=== PATIENT | male | born 1940 | race Caucasian/White ===

== ENCOUNTER → 2016-11-29 | Outpatient (CLI) | payer MEDICARE, BC ==
[2016-11-29 11:01] LABS: Basophils # (A) 0.1 k/uL (0-0.2); Basophils % (A) 1 %; CH 30.9; CHCM 34.4; Eosinophils # (A) 0.5 k/uL (0-0.7); Eosinophils % (A) 4 %; HCT 38.3 % (39.0-53.0); HDW 2.62; HGB 12.9 gm/dL (13.0-17.5); Luc # (Auto) 0.35; Luc % (Auto) 3; Lymphocytes # (A) 2.5 k/uL (1.0-4.8); Lymphocytes % (A) 20 %; MCH 30.4 pg (25.0-35.0); MCHC 33.7 g/dL (31.0-37.0); MCV 90.3 fL (80.0-100.0); Mean Platelet Volume 7.8; Monocytes # (A) 0.7 k/uL (0-1.0); Monocytes % (A) 5 %; Neutrophils # (A) 8.4 k/uL (1.3-7.7); Neutrophils % (A) 68 %; RBC 4.24 m/uL (4.30-5.90); RDW 12.5 % (11.5-15.5); WBC 12.5 k/uL (3.8-10.6); WBC (Perox) 12.78
[2016-11-29 11:54] LABS: Potassium 5.1 mmol/L (3.5-5.1); Total Protein 7.9 g/dL (6.3-8.2)
== END | disposition home or self-care (01) ==
LOC: LABWHC1 10:25
PROVIDERS: ATTEND Internal Medicine Clinical Cardiac Electrophysiology
DX: R55 Syncope and collapse (principal); I47.1 Supraventricular tachycardia
CPT/HCPCS: 36415; 80053; 84443; 85025

== ENCOUNTER 2016-12-04 14:36 | Day surgery (SDC) | payer MEDICARE, BC ==
[2016-11-29 15:21] VITALS: BMI 23.4
[~2016-12-04 14:36] MED LIST: SODIUM CHLORIDE 0.9% 1,000 ML IV SCH; ceFAZolin 1,000 MG in SODIUM CHLORIDE 0.9% IRRIGATIO 250 ML IRRIGATION ONE; ceFAZolin 2 GM in SODIUM CHLORIDE 0.9% 100 ML IVPB ONE
[2016-12-04 16:15] LABS: Glucose,Whole Blood 100 mg/dL (75-99)
[2016-12-04] MEDS ORDERED: IV FLUID CONTINUATION 1,000 ML IV ONE (17:53)
[2016-12-04] MEDS ORDERED: PROPOFOL 10 MG/ML 20 ML VIAL IV ONE (17:53)
[2016-12-04] MEDS ORDERED: fentaNYL (PF) 50 MCG/ML 2 ML AMP ONE (17:53)
[2016-12-04] MEDS ORDERED: MIDAZOLAM 2 MG/2 ML VIAL ONE (17:53)
[2016-12-04] MEDS ORDERED: ePHEDrine 50 MG/ML 1 ML AMP ONE (17:53)
[2016-12-04] MEDS ORDERED: SODIUM CHLORIDE 0.9% 500 ML IV ONE (18:02)
[2016-12-04] MEDS ORDERED: IODIXANOL 270 MG/ML 50 ML ML IV ONE (18:11)
[2016-12-04] MEDS ORDERED: LIDOCAINE 1% INJ 10MG/ML (10 ML MDV) SQ ONE (18:35)
[2016-12-04] MEDS ORDERED: LACTATED RINGERS 1,000 ML IV SCH (19:44)
--- NOTE | 2016-12-04 20:18 | P.PN ---
Progress Note - Text During ICD implantation during catheter placement, patient was experiencing PVCs with a right bundle branch block morphology, upright QRS is in the inferior leads and negatively oriented notched QRS is in lead 1. With lead manipulation he went into sustained ventricular tachycardia at 145 250 beats a minute. PVC morphology was identical to this VT morphology He has had very long runs of nonsustained ventricular tachycardia on Holter monitor in the past Suggest Coreg 6.25 mg twice daily Losartan 12.5 mg by mouth daily If BP is low, backoff on hydrochlorothiazide and amlodipine instead
--- NOTE | 2016-12-04 20:42 | PCN ---
DATE OF PROCEDURE: Wseley Ayala is a 76-year-old male patient who has severe ischemic cardiomyopathy of a chronic nature for at least one year with a severely reduced LV systolic dysfunction at 35%. He has adult-onset diabetes, diet-controlled, chronic kidney disease, stage III, very long runs of non-sustained ventricular tachycardia, frequent ventricular ectopy of ventricular bigeminy, and class II CHF along with sinus bradycardia. He was brought in for dual-chamber ICD implantation for primary prevention of sudden cardiac and management of sick sinus syndrome ( ) so far beta blockers had to be held because he was quite bradycardic. Patient was brought to the EP lab in a fasting state. Written informed consent was obtained prior to the procedure. The left shoulder area was prepped and draped as per protocol and 1% lidocaine was used for local anesthesia. A 4 cm incision was made parallel to the deltopectoral groove about 1.5 cm medial to it. The incision was carried down to the level of the pectoralis muscle. A subfascial pocket was made. Hemostasis was assured. The left axillary vein was accessed at 2 separate points under fluoroscopy and via appropriate-sized introducer sheaths, 2 leads were positioned in the right heart. The atrial lead was a 52 cm model #2088 TC, serial #[id number]. The lead was screwed into the right atrial appendage. The P waves were 2 mV, pacing impedance 530 ohms, pacing threshold 0.75 v at 0.5 ms. Ten-volt test was negative. The ICD lead was a single-coil DF4 lead, [employer], model #7122Q-58 cm and serial #[id number]. This was positioned in the RV apex. The R waves were 10 mV, pacing impedance of 560 ohms, pacing threshold 0.5 v at 0.5 ms. Ten-volt test was negative. Both leads were secured to the underlying pectoralis fascia using 2 non-absorbable sutures. Pocket was irrigated with antibiotic solution. Leads were connected to the generator ([employer] [id number], serial #[id number]). The leads and the generator were then placed in the subfascial pocket. The wound was closed in 3 layers and dressed per protocol. The device was secured to the underlying pectoralis muscle. RESULT: Successful dual-chamber ICD implantation for management of sinus bradycardia and primary prevention of sudden cardiac . Patient tolerated the procedure well without any acute complications. PLAN: Resume beta blockers.
--- NOTE | 2016-12-04 20:44 | LTR ---
December 04, 2016 RE: Wesley Ayala Dear Mirza, I had the pleasure of seeing Wesley Ayala in electrophysiology consultation once again. Wesley underwent dual-chamber ICD implantation successfully without any acute complications. He will stay overnight on telemetry for IV antibiotics, and if his device is functioning normally tomorrow, he will be discharged home. I will now start beta blockers on him. Thank you for entrusting me with the care of your patient. Warm regards. Sincerely, ARMAND DONIS MD
[2016-12-04] MEDS: LOSARTAN 25 MG TAB PO SCH (21:33)
[2016-12-04] MEDS: CARVEDILOL 6.25 MG TAB PO SCH (21:33)
[2016-12-04 22:43] VITALS: RESP 18
[2016-12-05] MEDS: ceFAZolin 2 GM in SODIUM CHLORIDE 0.9% 100 ML IVPB SCH ×4 (00:03→16:19)
[2016-12-05 06:58] LABS: Glucose,Whole Blood 146 mg/dL (75-99)
--- NOTE | 2016-12-05 07:19 | XR ---
EXAMINATION TYPE: XR chest 2V DATE OF EXAM: 12/05/2016 HISTORY: lead placement. REFERENCE: NONE. FINDINGS: There is a bipolar pacemaker in place. Approximately overlies the right atrium and distally overlies the right ventricle. Lung volumes are prominent. The lungs appear clear. Pleural spaces are clear. Heart size upper limits of normal. IMPRESSION: 1. SATISFACTORY PACEMAKER PLACEMENT. 2. COPD. 3. BORDERLINE CARDIOMEGALY.
[2016-12-05 07:22] LABS: Potassium 4.7 mmol/L (3.5-5.1)
--- NOTE | 2016-12-05 08:10 | P.DS ---
Providers Attending physician: Vito Sommer Primary care physician: Mirza [facility] Course: Discharge summary 76-year-old male patient with severe ischemic cardiomyopathy, chronic systolic dysfunction for at least rate is in one year CHF class II Sick sinus syndrome and sinus bradycardia Frequent PVCs, nonsustained ventricular tachycardia as well as sustained VT of her morphology identical to his PVCs in the EP lab with spontaneous conversion Chronic kidney disease stage III Known coronary artery disease old CT status post coronary stenting of the RCA almost 1 year back Dual-chamber ICD implanted yesterday Switch to Coreg and losartan yesterday Stop hydrochlorothiazide Amlodipine to continue Doing well this morning. Blood pressure in the normal range. Breath sounds normal, heart sounds normal Vitals stable ICD site is healed well no hematoma Chest x-ray within normal limits, leads stable Labs this morning as follows: Sodium 144, potassium 4.7, bicarb 20, BUN 31, creatinine 2.29, calcium 9.0 Plan Discharge home today after antibiotics and ICD interrogation Start Coreg 6.125 mg twice daily and losartan 12.5 mg by mouth daily in the morning Stop hydrochlorothiazide Continue amlodipine 10 mg daily in the evening BMP in 2 weeks on low-dose losartan Follow-up with Dr. Mirza rBuce in 3 weeks Device clinic follow-up in 5 days Follow-up with Dr. Sommer in 2-3 months Patient Condition at Discharge: Stable Plan - Discharge Summary New Discharge Prescriptions: No Action Atorvastatin Calcium [Lipitor] 80 mg PO HS Allopurinol [Zyloprim] 100 mg PO Q48H amLODIPine [Norvasc] 10 mg PO HS Clopidogrel Bisulfate [Plavix] 75 mg PO DAILY Cholecalciferol [Vitamin D3] 2,000 unit PO DAILY Aspirin [Adult Low Dose Aspirin EC] 81 mg PO QAM Discharge Medication List Allopurinol [Zyloprim] 100 mg PO Q48H 11/29/16 [History] Aspirin [Adult Low Dose Aspirin EC] 81 mg PO QAM 11/29/16 [History] Atorvastatin Calcium [Lipitor] 80 mg PO HS 11/29/16 [History] Cholecalciferol [Vitamin D3] 2,000 unit PO DAILY 11/29/16 [History] Clopidogrel Bisulfate [Plavix] 75 mg PO DAILY 11/29/16 [History] amLODIPine [Norvasc] 10 mg PO HS 11/29/16 [History]
[2016-12-05] MEDS: CARVEDILOL 6.25 MG TAB PO SCH ×2 (08:23→17:33)
[2016-12-05] MEDS: LOSARTAN 25 MG TAB PO SCH (08:23)
[2016-12-05 12:11] LABS: Glucose,Whole Blood 132 mg/dL (75-99)
[2016-12-05 17:05] VITALS: BP 157/67; PULSE 58; TEMP 98.4
[2016-12-05 17:20] LABS: Glucose,Whole Blood 108 mg/dL (75-99)
[2016-12-05] MEDS ORDERED: ceFAZolin 2 GM in SODIUM CHLORIDE 0.9% 100 ML IVPB SCH (22:00)
== END 2016-12-05 18:00 | disposition home or self-care (01) ==
LOC: CATHEP 14:36 → 3OBS 19:16 → CATHEP 12-05 18:00
PROVIDERS: ATTEND Internal Medicine Clinical Cardiac Electrophysiology
DX: I25.5 Ischemic cardiomyopathy (principal); I47.2 Ventricular tachycardia; I25.10 Atherosclerotic heart disease of native coronary artery without angina pectoris; Z95.5 Presence of coronary angioplasty implant and graft; I49.5 Sick sinus syndrome; I13.0 Hypertensive heart and chronic kidney disease with heart failure and stage 1 through stage 4 chronic kidney disease, or unspecified chronic kidney disease; E11.22 Type 2 diabetes mellitus with diabetic chronic kidney disease; N18.3 Chronic kidney disease, stage 3 (moderate); I50.22 Chronic systolic (congestive) heart failure; I49.3 Ventricular premature depolarization; I25.2 Old myocardial infarction; I77.819 Aortic ectasia, unspecified site; I70.0 Atherosclerosis of aorta; R00.1 Bradycardia, unspecified; Z00.6 Encounter for examination for normal comparison and control in clinical research program; J44.9 Chronic obstructive pulmonary disease, unspecified; M10.9 Gout, unspecified; Z79.02 Long term (current) use of antithrombotics/antiplatelets; Z79.82 Long term (current) use of aspirin; Z79.899 Other long term (current) drug therapy; Z87.891 Personal history of nicotine dependence
CPT/HCPCS: 33249; 80048; 71020; C1892; C1898; C1777; C1721; C1769; J2250; Q9966; J0690; J3010; J2001; J2704